=== PATIENT | female | born 1990 | race Caucasian/White ===

== ENCOUNTER 2016-10-29 15:53 | Emergency (ER) | payer SELFPAY ==
[~2016-10-29] VITALS: Ht 154.9 cm; Wt 68.6 kg
[~2016-10-29 15:53] MED LIST: COMPLETENATE T1 EACH PO; DOCUSATE SODIU100 MG PO; ENDOCET 5-3251 EACH PO; FERROUS SULFAT325 MG PO; HYCODAN SYRUP480 ML PO; IBUPROFEN800 MG PO; VALTREX50 MG/ML PO; ZITHROMAX Z-PA250 MG PO; ZOLOFT50 MG PO
[2016-10-29 15:59] VITALS: BP 125/76
[2016-10-29] MEDS ORDERED: KEFLEX500 MG PO (16:43)
== END 2016-10-29 16:57 | disposition home or self-care (01) ==
LOC: EME 15:53
DX: T78.40XA Allergy, unspecified, initial encounter (principal); L81.8 Other specified disorders of pigmentation; Z88.8 Allergy status to other drugs, medicaments and biological substances
CPT/HCPCS: 99281; 99283